=== PATIENT | male | born 1985 | race Caucasian/White ===

== ENCOUNTER 2018-02-27 20:43 | Emergency (ER) | payer OTHER ==
[2018-02-27] MEDS ORDERED: TETANUS AND DIPHTHERIA PF 0.5 ML SYR IM ONE (20:48)
--- NOTE | 2018-02-27 20:59 | Emergency Department Record ---
History of Present Illness - General Chief Complaint: Laceration(s) Stated Complaint: LACERATION Source: Patient - History of Present Illness Initial Commments: The patient was chopping wood when the blade of the axe came loose, cutting his right kumar. He is NOT UTD on his tetanus becaue he states he is allergi to pertussis vaccine. He is not on aspirin or blood thinners. He denies other injury . He ambulated to the house after his injury. Extremity Location: Right: Lower leg (6 cm linear laceration full skin thickness.) Place: Home Context: Accidental - Related Data Home Medications Medication Instructions Recorded Confirmed Last Taken Alprazolam [Xanax] 0.25 mg PO QHS 02/27/18 02/27/18 Unknown Previous Rx's Medication Instructions Recorded Cephalexin [Keflex] 500 mg PO QID #39 cap 02/27/18 Allergies Allergy/AdvReac Type Severity Reaction Status Date / Time Pertussis Vaccines Allergy ANAPHYLAXIS Verified 02/27/18 20:46 Review of Systems Reviewed: No additional complaints except as noted below Constitutional: Reports: As per HPI. Denies: Chills, Fever, Malaise, Night sweats, Weakness, Weight change Eyes: Reports: As per HPI. Denies: Eye discharge, Eye pain, Photophobia, Vision change ENT: Reports: As per HPI. Denies: Congestion, Dental pain, Ear pain, Epistaxis , Hearing loss, Throat pain Respiratory: Reports: As per HPI. Denies: Cough, Dyspnea, Hemoptysis, Stridor, Wheezes Cardiovascular: Reports: As per HPI. Denies: Arrhythmia, Chest pain, Dyspnea on exertion, Edema, Murmurs, Orthopnea, Palpitations, Paroxysmal nocturnal dyspnea, Rheumatic Fever, Syncope Endocrine: Reports: As per HPI. Denies: Fatigue, Heat or cold intolerance, Polydipsia, Polyuria Gastrointestinal: Reports: As per HPI. Denies: Abdominal pain, Constipation, Diarrhea, Hematemesis, Hematochezia, Melena, Nausea, Vomiting Genitourinary: Reports: As per HPI. Denies: Dysuria, Frequency, Hematuria, Incontinence, Retention, Testicular pain, Testicular mass, Urgency Musculoskeletal: Reports: As per HPI. Denies: Arthralgia, Back pain, Gout, Joint swelling, Myalgia, Neck pain Skin: Reports: As per HPI. Denies: Bruising, Change in color, Change in hair/ nails, Lesions, Pruritus, Rash Neurological: Reports: As per HPI. Denies: Abnormal gait, Confusion, Headache, Numbness, Paresthesias, Seizure, Tingling, Tremors, Vertigo, Weakness Psychiatric: Reports: As per HPI. Denies: Anxiety, Auditory hallucinations, Depression, Homicidal thoughts, Suicidal thoughts, Visual hallucinations Hematological/Lymphatic: Reports: As per HPI. Denies: Anemia, Blood Clots, Easy bleeding, Easy bruising, Swollen glands Physical Exam - General General Appearance: Alert, Oriented x3, Cooperative, Mild distress - Head Head exam: Normal inspection - Eye Eye exam: Normal appearance, PERRL Pupils: Normal accommodation - ENT ENT exam: Normal exam, Mucous membranes moist, Normal external ear exam, Normal orophraynx, TM's normal bilaterally Ear exam: Normal external inspection. negative: External canal tenderness Nasal Exam: Normal inspection. negative: Discharge, Sinus tenderness Mouth exam: Normal external inspection, Tongue normal Teeth exam: Normal inspection. negative: Dental caries Throat exam: Normal inspection. negative: Tonsillar erythema, Tonsillar exudate - Neck Neck exam: Normal inspection, Full ROM. negative: Tenderness - Respiratory Respiratory exam: Normal lung sounds bilaterally. negative: Respiratory distress - Cardiovascular Cardiovascular Exam: Regular rate, Normal rhythm, Normal heart sounds - GI/Abdominal GI/Abdominal exam: Soft, Normal bowel sounds. negative: Tenderness - Rectal Rectal exam: Deferred - exam: Deferred - Extremities Extremities exam: Normal inspection, Full ROM, Normal capillary refill. negative: Tenderness Image of Full Body: 1 - 6 cm linear lac to kumar anteriorly - Back Back exam: Reports: Normal inspection, Full ROM. Denies: Muscle spasm, Rash noted, Tenderness - Neurological Neurological exam: Alert, CN II-XII intact, Normal gait, Oriented X3, Reflexes normal - Psychiatric Psychiatric exam: Normal affect, Normal mood - Skin Skin exam: Dry, Intact, Normal color, Warm Course - Reevaluation(s) Reevaluation #1: 02/28/18 01:29 PROCEDURE: 1% lido with epi injected under sterile technique locally, 9 cc. to right kumar. 6 cm lac. Sterile prep, sterile drapes, copious irrigation, no FB or debris found, no tendon involvement, no bony exposure. Closed wound with 2- layer closure: 4.0 vicryl #12 with a few running; closed skin with #10 4.0 running. Patient tolerated well. Medical Decision Making - Management Options MDM Management: No Additional Work-up Planned - Data Complexity MDM Data: X-Ray Ordered and/or Reviewed (right kumar xray: normal per radiologist.) Disposition Disposition: Discharge Clinical Impression: Laceration of leg Qualifiers: Encounter type: initial encounter Laterality: right Qualified Code(s): S81.811A - Laceration without foreign body, right lower leg, initial encounter Disposition: Home, Self-Care Condition: (1) Good Instructions: Laceration (ED) Additional Instructions: Keflex 500 mg 4 times daily for 14 days. Elevate leg above heart. No unnecessary ambulation. Ice, elevate. Tylenol alternated with ibuprofen as directed for pain. Suture removal 14 days. Prescriptions: Cephalexin [Keflex] 500 mg PO QID #39 cap Forms: Patient Portal Access Quality - Quality Measures Quality Measures: N/A - Blood Pressure Screening Does Patient Have Any of the Following: No Blood Pressure Classification: Pre-Hypertensive BP Reading Systolic Measurement: 138 Diastolic Measurement: 82 Screening for High Blood Pressure: < Pre-Hypertensive BP, F/U Documented > [ G8950] Pre-Hypertensive Follow-up Interventions: Follow-up with rescreen every year.
[2018-02-27] MEDS ORDERED: HYDROCODONE/APAP 5/325MG TABLET PO ONE (22:27)
[2018-02-27] MEDS ORDERED: CEPHALEXIN 500 MG CAPSULE PO STA (22:28)
--- NOTE | 2018-03-01 17:37 | RADIOLOGY REPORT ---
EXAM: LOWER LEG, RIGHT HISTORY: PATIENT HAS A DEEP LACERATION WITHIN THE RIGHT LEG. TECHNIQUE: Two views of the right leg are provided without comparison studies. FINDINGS: There is no radiographic evidence of a fracture or dislocation of the right tibia and fibula. Soft tissue swelling is noted over the anterior distal tibia and fibula. No radiopaque foreign bodies are identified. IMPRESSION: SOFT TISSUE SWELLING IS NOTED OVER THE ANTEROLATERAL DISTAL TIBIA AND FIBULA WITHOUT RADIOGRAPHIC EVIDENCE OF A FRACTURE OR DISLOCATION OF THE RIGHT TIBIA OR FIBULA. NO RADIOPAQUE FOREIGN BODIES ARE IDENTIFIED. JOB NUMBER: [id number] [facility]
== END 2018-02-27 22:55 | disposition home or self-care (01) ==
LOC: ER 20:43
DX: S81.811A Laceration without foreign body, right lower leg, initial encounter (principal); W26.8XXA Contact with other sharp object(s), not elsewhere classified, initial encounter; Y93.89 Activity, other specified
CPT/HCPCS: 12032; 96372; 99283

== ENCOUNTER 2018-03-13 15:01 | Emergency (ER) | payer OTHER ==
--- NOTE | 2018-03-13 15:47 | Emergency Department Record ---
History of Present Illness - General Chief Complaint: Wound, check Stated Complaint: RECHECK LEG Time Seen by Provider: 03/13/18 15:11 Source: Patient Mode of arrival: Ambulatory Limitations: No limitations - History of Present Illness Initial Comments: The patient is here for suture removal. He has sutures placed 2 weeks ago. The lac has healed well but he does have some numbness to the distal medial foot. The patient has seen his PCP for recheck already and is planning on seeing him again after the sutures are removed. Complaint: Suture/staple removal Onset/Timin -: Days(s) - Related Data Allergies Allergy/AdvReac Type Severity Reaction Status Date / Time Pertussis Vaccines Allergy ANAPHYLAXIS Verified 02/27/18 20:46 Travel Screening - Travel/Exposure Within Last 30 Days Have you traveled within the last 30 days?: No - Travel/Exposure Within Last Year Have you traveled outside the [place] in the last year?: No - Additonal Travel Details Have you been exposed to anyone with a communicable illness?: No Review of Systems Constitutional: Denies: Chills, Fever Past Medical History - SOCIAL HISTORY Smoking Status: Former smoker Alcohol Use: None Drug Use: None - RESPIRATORY Hx Respiratory Disorders: No - CARDIOVASCULAR Hx Cardio Disorders: No - NEURO Hx Neuro Disorders: No - GI Hx GI Disorders: No - Hx Genitourinary Disorders: No - ENDOCRINE Hx Endocrine Disorders: No - MUSCULOSKELETAL Hx Musculoskeletal Disorders: No - PSYCH Hx Psych Problems: Yes Hx Anxiety: Yes - HEMATOLOGY/ONCOLOGY Hx Hematology/Oncology Disorders: No Family Medical History Any Significant Family History?: Yes Hx Cancer: Grandparents *Cancer Comment: fathers father Hx Diabetes: Mother Hx Heart Disease: Grandparents *Heart Comment: uncle motherside Physical Exam - General General Appearance: Alert, Cooperative, No acute distress - Extremities Extremities exam: negative: Normal inspection (The distal L leg lac is well healed. The sutures were removed without difficulty. There were no complications.) Course Vital Signs 03/13/18 15:30 Temperature 98.6 F Pulse Rate 111 H Respiratory 18 Rate Blood Pressure 140/87 Pulse Ox 99 Disposition Disposition: Discharge Clinical Impression: Encounter for removal of sutures Disposition: Home, Self-Care Condition: (2) Stable Instructions: Stitches Removal (ED) Additional Instructions: Keep the wound dry for 2 days and see your family doctor next week for recheck. Forms: Patient Portal Access Time of Disposition: 15:46 Quality - Quality Measures Quality Measures: N/A - Blood Pressure Screening View Details: Yes Does Patient Have Any of the Following: No Blood Pressure Classification: Pre-Hypertensive BP Reading Systolic Measurement: 140 Diastolic Measurement: 87 Screening for High Blood Pressure: < Pre-Hypertensive BP, F/U Documented > [ G8950] Pre-Hypertensive Follow-up Interventions: Referral to alternative/primary care provider.
== END 2018-03-13 15:45 | disposition home or self-care (01) ==
LOC: ER 15:01
DX: Z48.02 Encounter for removal of sutures (principal)